=== PATIENT | female | born 2000 | race Caucasian/White ===

== ENCOUNTER 2024-04-13 09:36 | Emergency (ER) | payer BC, SELFPAY ==
[2024-04-13 09:39] VITALS: BP 141/79
--- NOTE | 2024-04-13 09:55 | ED.GENMED ---
History of Present Illness
General
Chief Complaint: Skin Surface Trauma
Source: patient
Time Seen by Provider: 04/13/24 09:45
History of Present Illness
History of Present Illness:
23-year-old female presenting to the emergency department for evaluation after cut her left forearm with a razor blade approximately 15 minutes prior to arrival to the emergency department. Patient states that she did this this attention seeking
behavior and she did not have any attempts to injure or express suicidality. Patient notes a history of similar in the past. She states that this can be performed when she is feeling anxious. Has an appointment with her therapist tomorrow.
Otherwise denying any homicidality, auditory or visual sedations, substance abuse. Lives at home with her parents and states that they are currently home. She feels safe at home. Her tetanus vaccine is up-to-date.
Past History
Past History
ED Past Medical History: Psychiatric
ED Past Surgical History: None
Social History
Tobacco: Non-smoker
Alcohol: None
Drug: None
Personal: Single
Living: with family
Employment: Student
Review of Systems
Review of Systems
All Other Systems: ROS reviewed and negative except as documented in HPI and ROS
Phy Exam
Physical Exam
Physical Exam:
GENERAL: Alert , in no apparent distress
EYE: conjunctiva clear
Head: Normocephalic atraumatic
NECK: Supple,
ENT: mmm.
LUNGS: no acute respiratory distress
NEUROLOGICAL: Alert and oriented
SKIN: Warm and dry, multiple superficial lacerations along the volar surface of the left forearm extending from distal to proximal, proximal most aspect is the deepest however still remains superficial. There is no active bleeding. Today's
lacerations are vertically oriented. There is scars from previous cutting/self-injurious behavior that is more horizontal. No signs of secondary cellulitic infection
MUSCULOSKELETAL: well perfused. Easily palpable radial pulse
PSYCH: Normal and appropriate interaction.
Scores
Heart Failure Risk
Heart Failure Risk Score: Not Applicable
Heart Score for Chest Pain Patients
STEMI patient?: Not applicable
Withdrawal Assessment of Alcohol
Withdrawal Assessment Completed?: Not applicable
Course
Vital Signs
Initial and Last Documented VS:
Initial Vital Signs
Temp Pulse Resp BP Pulse Ox
98.5 F 65 18 141/79 98
04/13/24 09:39 04/13/24 09:39 04/13/24 09:39 04/13/24 09:39 04/13/24 09:39
Last Documented Vital Signs
Temp Pulse Resp BP Pulse Ox
98.5 F 65 18 141/79 98
04/13/24 09:39 04/13/24 09:39 04/13/24 09:39 04/13/24 09:39 04/13/24 09:39
MDM/Problems Addressed
MDM/Problems Addressed:
23-year-old female presenting to the emergency department for evaluation of laceration sustained via razor blade to her left forearm noting a history of self-injurious behavior but denies any explicit suicidality. Patient states there was no intent
of suicidality. States that this was attention seeking behavior. She is adamant she does not want to speak to [facility] crisis team. She has an appointment with her therapist tomorrow. Denies any homicidality. No hallucinations. No other
physical complaints. Tetanus vaccine is up-to-date. Wounds were irrigated with copious normal saline. Sterile dressing and bacitracin were applied. Patient advised on wound care as well as return precautions to the ER. Patient feels safe and
comfortable being discharged back home.
*Pulse Oximetry
Patient hypoxic: no
*Critical Care Note
Total Time (30-74mins, 75-104mins- exclusive of procedures): Not Applicable
Patient Management
Social determinants of health affecting care: Living situation and Strong social support
ED Attending Note
-
Portions of this chart may have been created with voice recognition software.� Occasional wrong word or��sound alike� substitutions may have occurred due to the inherent limitations of voice recognition software.
Discharge Plan
Departure
Patient Disposition: Home (Routine Discharge)
Date of Disposition: 04/13/24
Time of Disposition: 10:00
Patient with high blood pressure during this ER visit?: Yes
Discharge Problem:
Self-injurious behavior, Laceration of left forearm
Instructions: Wound Care (DC)
Interventions
Interventions:
*Risk Screen - Suicide Last Done: 04/13/24 09:39
*General Assessment Last Done: 04/13/24 09:39
*Neglect/Abuse Screening Last Done: 04/13/24 09:39
*ED COVID-19 Vaccine History Last Done: 04/13/24 09:39
*Nursing Disposition Last Done: 04/13/24 10:33
ED-Skin Assessment Last Done: 04/13/24 10:00
Discharge Date and Time
Discharge Date/Time: 04/13/24 10:33
Print Language: IRAQI
== END 2024-04-13 10:33 | disposition home or self-care (01) ==
LOC: EMR 09:36
PROVIDERS: EMERGENCY PHYSICIAN Emergency Medicine
DX: S51.812A Laceration without foreign body of left forearm, initial encounter (principal); W45.8XXA Other foreign body or object entering through skin, initial encounter; Z91.52 Personal history of nonsuicidal self-harm
CPT/HCPCS: 99282